=== PATIENT | male | born 2000 | race Caucasian/White ===

== ENCOUNTER 2025-03-26 17:20 | Emergency (ER) | payer OTHER ==
[2025-03-26 17:26] VITALS: BP 140/62; PULSE 75; RESP 18; TEMP 98.2; BMI 26.9
[2025-03-26 19:34] LABS: HCV DIAGNOSTIC IN-HOUSE W/RFLX NON-REACTIVE (NONREACTIVE); HIV INTERPRETATION NEGATIVE (NEGATIVE)
== END 2025-03-26 20:17 | disposition home or self-care (01) ==
LOC: JER 17:20
DX: S16.1XXA Strain of muscle, fascia and tendon at neck level, initial encounter (principal); M25.512 Pain in left shoulder; V47.5XXA Car driver injured in collision with fixed or stationary object in traffic accident, initial encounter; Y92.410 Unspecified street and highway as the place of occurrence of the external cause
CPT/HCPCS: 36415; 70450-TC; 71046-TC-FY; 72125-TC; 73030-TC-LT-FY; 86803; 87389; 99285-25